=== PATIENT | female | born 1990 | race African-American/Black ===

== ENCOUNTER 2017-05-13 18:08 | Emergency (ER) | payer MEDICARE, OTHER ==
[~2017-05-13] VITALS: Ht 157.5 cm; Wt 91.6 kg
[~2017-05-13 18:08] MED LIST: AMOX500T PO; CLIN150C14 PO; HYDR-971 PO
[2017-05-13 18:22] VITALS: BP 151/93
[2017-05-13] MEDS ORDERED: CYCL10TA2 PO (18:35)
[2017-05-13] MEDS ORDERED: IBUP-1060 PO (18:35)
--- NOTE | 2017-05-13 18:35 | PHYS DOC ---
Past Medical History Past Medical History: Anxiety, Asthma, Other Additional Past Medical Histor: Little's dx, Cerbral palsy Past Surgical History: Other Additional Past Surgical Histo: HIP, KNEES, Feet AND EYE SURGERIES Alcohol Use: None Drug Use: None Adult General Chief Complaint Chief Complaint: Neck Pain [facility] HPI Patient is a 27 year old female presents to the emergency department stating that she is having neck pain for the last 2 months. She states that she has not taken anything for the pain or discomfort. She does state that she tries to go to sleep to help with the pain however this does not help. She states when she gets up the pain is worse. She states that the pain is also worse when she turns her head to the side left or right. She denies any fever, chills or any nausea or vomiting. She denies any visual disturbances. She denies any numbness or tingling down to her extremities. Patient denies injury or trauma to the neck. Review of Systems Review of Systems Constitutional: Denies fever or chills [] Eyes: Denies change in visual acuity, redness, or eye pain [] HENT: Denies nasal congestion or sore throat [] Respiratory: Denies cough or shortness of breath [] Cardiovascular: No additional information not addressed in HPI [] GI: Denies abdominal pain, nausea, vomiting, bloody stools or diarrhea [] : Denies dysuria or hematuria [] Musculoskeletal: c/o neck pain denies joint pain Integument: Denies rash or skin lesions [] Neurologic: Denies headache, focal weakness or sensory changes [] Endocrine: Denies polyuria or polydipsia [] All other systems were reviewed and found to be within normal limits, except as documented in this note. Allergies Allergies Allergies Coded Allergies Type Severity Reaction Last Updated Verified No Known Drug Allergies 01/19/16 No Physical Exam Physical Exam Constitutional: Well developed, well nourished, no acute distress, non-toxic appearance. [] HENT: Normocephalic, atraumatic, bilateral external ears normal, oropharynx moist, no oral exudates, nose normal. [] Eyes: PERRLA, EOMI, conjunctiva normal, no discharge. [] Neck: Normal range of motion, no tenderness, supple, no stridor. [] Cardiovascular:Heart rate regular rhythm, no murmur [] Lungs & Thorax: Bilateral breath sounds clear to auscultation [] Skin: Warm, dry, no erythema, no rash. [] Back: Patient with paraspinal tenderness noted, No cervical spine tenderness noted. No nuchal rigidity noted Extremities: No tenderness, no cyanosis, no clubbing, ROM intact, no edema. Equal strength noted bilaterally, peripheral pulses 2+ cap refill brisk < 2 seconds. Neurologic: Alert and oriented X 3, normal motor function, normal sensory function, no focal deficits noted. [] Psychologic: Affect normal, judgement normal, mood normal. [] Current Patient Data Vital Signs Vital Signs Date Time Temp Pulse Resp B/P (MAP) Pulse Ox O2 Delivery O2 Flow Rate FiO2 05/13/17 18:22 98.0 98 14 99 Room Air 98.0 EKG EKG [] Radiology/Procedures Radiology/Procedures [] Course & Med Decision Making Course & Med Decision Making Pertinent Labs and Imaging studies reviewed. (See chart for details) Patient will be provided with prescription for ibuprofen 800 mg every 8 hours in which she can take with food. She'll also be provided with Flexeril when she was instructed will cause drowsiness do not take any be alert and oriented. Patient was recommended to use ice packs to the areas of discomfort if she is unable to tolerate ice she may use warm moist heat. Recommended that she follow up with a primary care physician in the next week. Patient states she does not have a primary care physician she'll be provided with a physician list. Patient was provided with signs and symptoms to return back to the emergency department. All questions and concerns answered at the patients bedside. She'll be discharged home in stable condition. [I've spoken with the patient and/or caregivers. I've explained the patient's condition, diagnosis and treatment plan based on information available to me at this time. I've answered the patient's and/or caregivers questions and addressed any concerns. The patient and/or caregivers have a good understanding the patient's diagnosis, condition and treatment plan as can be expected at this point. Vital signs have been stabilized. The patient's condition is stable for discharge from the emergency department. The patient will pursue further outpatient evaluation with her primary care provider or other designated consulting physician as outlined in the discharge instructions. Patient and/or caregivers are agreeable to this plan of care and follow-up instructions have been explained in detail. The patient and/or caregivers have received these instructions in written format and expressed understanding of these discharge instructions. The patient and her caregivers are aware that if any significant change in condition or worsening of symptoms should prompt him to immediately return to this of the closest emergency department. If an emergent department is not readily available I would encourage him to call 911.] Cecelia Disclaimer Dragon Disclaimer This electronic medical record was generated, in whole or in part, using a voice recognition dictation system. Departure Departure Impression: Primary Impression: Neck pain Disposition: HOME, SELF-CARE Condition: STABLE Referrals: NO PCP (PCP) Patient Instructions: Soft Tissue Injury of the Neck, [id number] Additional Instructions: Activity as tolerated Medication as prescribed Ibuprofen 800 mg every 8 hours, take this medication with food, stop taking if you develop upset stomach Flexeril will cause drowsiness do not take if you need to be alert and oriented Ice packs to the area of discomfort on 20 minutes and off 20 minutes several times a day If you cannot tolerate ice you may use warm moist packs. Followup with primary care provider in 1 week Return to emergency department as needed for signs and symptoms that become worse. Scripts Cyclobenzaprine Hcl (CYCLOBENZAPRINE HCL) 10 Mg Tablet 1 TAB PO TID Y for MUSCLE SPASMS, #30 TAB Prov: ALLEY ONOFRE APRN 05/13/17 Ibuprofen (IBUPROFEN) 800 Mg Tablet 800 MG PO PRN Q6HRS Y for INFLAMMATION, #30 TAB Prov: ALLEY ONOFRE APRN 05/13/17 ALLEY ONOFRE APRN May 13, 2017 18:35
== END 2017-05-13 18:56 | disposition home or self-care (01) ==
LOC: ER 18:08
DX: M54.2 Cervicalgia (principal); F41.9 Anxiety disorder, unspecified; J45.909 Unspecified asthma, uncomplicated; G80.9 Cerebral palsy, unspecified
CPT/HCPCS: 99283